=== PATIENT | male | born 1970 | race Caucasian/White ===

== ENCOUNTER 2018-10-29 06:20 | Day surgery (SDC) | payer OTHER ==
[~2018-10-29] VITALS: Ht 167.6 cm; Wt 105.5 kg
[~2018-10-29 06:20] MED LIST: SODIUM CHLORIDE 0.9% 1,000 ML IV ONE
[2018-10-29] MEDS ORDERED: LIDOCAINE 4% 50 ML SOLUTION TP ONE (06:21)
[2018-10-29] MEDS ORDERED: LIDOCAINE 2% 5 ML JELLY TP ONE (06:21)
[2018-10-29] MEDS ORDERED: BENZOCAINE 20% 50 MCG/SPRAY 57 GM TP ONE (06:21)
[2018-10-29] MEDS ORDERED: ALBUTEROL SULFATE 2.5 MG/0.5 ML NEB SOLUTION NEB ONE (06:21)
[2018-10-29] MEDS ORDERED: SODIUM CHLORIDE 0.9% 1,000 ML IV ONE (06:30)
[2018-10-29 07:28] LABS: GLUCOMETER DEV NAME(LOC) SDS.; GLUCOSE,POINT OF CARE 130 MG/DL (70-110)
[2018-10-29] MEDS ORDERED: ATOR40TA28 PO (07:52)
[2018-10-29] MEDS ORDERED: METF-445 PO (07:52)
[2018-10-29] MEDS ORDERED: HYDR25TA PO (07:52)
[2018-10-29] MEDS ORDERED: EXEN2PEN SQ (07:52)
[2018-10-29] MEDS ORDERED: LOSA25TA41 PO (07:52)
[2018-10-29] MEDS ORDERED: VITAD1000 PO (07:52)
[2018-10-29] MEDS ORDERED: CYAN250010 PO (07:52)
[2018-10-29] MEDS ORDERED: GLIP10 PO (07:52)
[2018-10-29] MEDS ORDERED: ASPI81 PO (07:52)
[2018-10-29] MEDS ORDERED: FENO160 PO (07:52)
[2018-10-29] MEDS ORDERED: FentaNYL CITRATE-PF 100 MCG/2 ML VIAL ONE (07:55)
[2018-10-29] MEDS ORDERED: MIDAZOLAM HCL 2 MG/2 ML VIAL ONE (07:55)
[2018-10-29] MEDS ORDERED: MethylPREDNISolone SOD SUCC 125 MG/2 ML VIAL IVP ONE (09:00)
[2018-10-29] MEDS ORDERED: MethylPREDNISolone SOD SUCC 125 MG/2 ML VIAL ONE (09:09)
[2018-10-29] MEDS ORDERED: OXYGEN THERAPY IH SCH (20:00)
== END 2018-10-29 10:30 | disposition home or self-care (01) ==
LOC: SURGERY 06:20
PROVIDERS: ATTEND Internal Medicine Critical Care Medicine
DX: J38.4 Edema of larynx (principal); B37.0 Candidal stomatitis; J42 Unspecified chronic bronchitis; I10 Essential (primary) hypertension; E11.9 Type 2 diabetes mellitus without complications; Z87.891 Personal history of nicotine dependence; Z79.82 Long term (current) use of aspirin; Z79.899 Other long term (current) drug therapy; Z98.890 Other specified postprocedural states
CPT/HCPCS: 31623; 31624; 71045; 82962; 87015; 87070; 87101; 87206; 87220; 88108; 88312; J2250; J2930; J3010; J7030

== ENCOUNTER 2020-09-18 06:32 | Day surgery (SDC) | payer OTHER ==
[2020-09-17 14:08] LABS: COVID AG,FIA SOURCE NASOPHARYNGEAL
[~2020-09-18] VITALS: Ht 177.8 cm; Wt 102.0 kg
[~2020-09-18 06:32] MED LIST changes: +ASPI-728 PO; +ATOR40TA28 PO; +CHOL100018 PO; +CYAN250010 PO; +EXEN2PEN SQ; +FENO160T41 PO; +GLIP10 PO; +HYDR-1475 PO; +LOSA25TA21 PO; +METF-445 PO
[2020-09-18] MEDS ORDERED: SODIUM CHLORIDE 0.9% 1,000 ML ONE (06:33)
[2020-09-18] MEDS ORDERED: MONT-35 PO (07:30)
[2020-09-18] MEDS ORDERED: EMPA25TA PO (07:30)
[2020-09-18] MEDS ORDERED: MIDAZOLAM HCL 2 MG/2 ML VIAL ONE (07:59)
[2020-09-18] MEDS ORDERED: ATROPINE SULFATE 0.1 MG/ML 10 ML SYRINGE IVP ONE (08:00)
[2020-09-18] MEDS ORDERED: FLUMAZENIL 0.1 MG/ML 5 ML VIAL IVP ONE (08:00)
[2020-09-18] MEDS ORDERED: SODIUM TETRADECYL SULFATE 3% 60 MG/2 ML VIAL IVP ONE (08:00)
[2020-09-18] MEDS ORDERED: DiphenhydrAMINE HCL 50 MG/ML VIAL ONE (08:00)
[2020-09-18] MEDS ORDERED: FentaNYL CITRATE PF 100 MCG/2 ML VIAL ONE (08:00)
[2020-09-18] MEDS ORDERED: EPINEPHrine 1:10,000 [1 MG/10 ML] SYRINGE ONE (08:00)
[2020-09-18] MEDS ORDERED: NALOXONE HCL 0.4 MG/ML VIAL ONE (08:00)
[2020-09-18] MEDS ORDERED: MethylPREDNISolone SOD SUCC 125 MG/2 ML VIAL IVP ONE (09:00)
[2020-09-18] MEDS ORDERED: MethylPREDNISolone SOD SUCC 125 MG/2 ML VIAL ONE (09:24)
[2020-09-18] MEDS ORDERED: OXYGEN THERAPY IH SCH (20:00)
== END 2020-09-18 10:35 | disposition home or self-care (01) ==
LOC: SURGERY 06:32
PROVIDERS: ATTEND Internal Medicine Critical Care Medicine
DX: J38.4 Edema of larynx (principal); B37.0 Candidal stomatitis; I10 Essential (primary) hypertension; G47.33 Obstructive sleep apnea (adult) (pediatric); Z72.89 Other problems related to lifestyle; E11.9 Type 2 diabetes mellitus without complications; Z79.4 Long term (current) use of insulin; Z79.82 Long term (current) use of aspirin; Z79.899 Other long term (current) drug therapy
CPT/HCPCS: 31623; 31624; 71045; 87015; 87070; 87101; 87205; 87206; 87220; 87426; 88108; 88184; 88185; 88312; C9803; J2250; J2930; J3010; J7030; A9575; J0171; J0461; J1200; J2310; J3490

== ENCOUNTER 2023-12-04 07:09 | Day surgery (SDC) | payer OTHER ==
[~2023-12-04] VITALS: Ht 165.1 cm; Wt 83.2 kg
[~2023-12-04 07:09] MED LIST changes: +ASPI-1450 PO; -ASPI-728 PO; +EMPA25TA3 PO; -FENO160T41 PO; +FENO160T75 PO; -GLIP10 PO; +GLIP10TA10 PO; -HYDR-1475 PO; +HYDR25TA2 PO; +LOSA-381 PO; -LOSA25TA21 PO; +MONT-35 PO; -SODIUM CHLORIDE 0.9% 1,000 ML IV ONE
[2023-12-04] MEDS ORDERED: SODIUM CHLORIDE 0.9% 1,000 ML ONE (07:11)
[2023-12-04] MEDS ORDERED: FentaNYL CITRATE PF 100 MCG/2 ML VIAL ONE (08:01)
[2023-12-04] MEDS ORDERED: MIDAZOLAM HCL 2 MG/2 ML VIAL ONE (08:01)
[2023-12-04] MEDS ORDERED: METF-1211 PO (08:07)
[2023-12-04] MEDS ORDERED: ROSU40TA70 PO (08:07)
[2023-12-04] MEDS ORDERED: CYAN-53 PO (08:07)
[2023-12-04] MEDS: SODIUM CHLORIDE 0.9% 1,000 ML IV ONE (08:25)
[2023-12-04 08:35] LABS: GLUCOMETER DEV NAME(LOC) SDS.; GLUCOSE,POINT OF CARE 135 MG/DL (70-110)
[2023-12-04 09:47] VITALS: PULSE 91; RESP 16; O2SAT 100
[2023-12-04] MEDS ORDERED: MethylPREDNISolone SOD SUCC 125 MG/2 ML VIAL ONE (10:08)
[2023-12-04] MEDS: MethylPREDNISolone SOD SUCC 125 MG/2 ML VIAL IVP ONE (10:20)
[2023-12-04] MEDS ORDERED: LIDOCAINE 2% 11 ML JELLY ONE (12:00)
[2023-12-04] MEDS ORDERED: LIDOCAINE 4% 50 ML SOLUTION ONE (12:00)
[2023-12-04] MEDS ORDERED: BENZOCAINE 20% 50 MCG/SPRAY 57 GM ONE (12:00)
== END 2023-12-04 11:10 | disposition home or self-care (01) ==
LOC: SURGERY 07:09
PROVIDERS: ATTEND Internal Medicine Critical Care Medicine
DX: J38.4 Edema of larynx (principal); B37.0 Candidal stomatitis; Z79.899 Other long term (current) drug therapy; F17.210 Nicotine dependence, cigarettes, uncomplicated; Z72.89 Other problems related to lifestyle; E11.9 Type 2 diabetes mellitus without complications; E78.00 Pure hypercholesterolemia, unspecified; Z98.890 Other specified postprocedural states
CPT/HCPCS: 31623; 82962; 87206; 87101; 87220; 87070; 88108; 31624; 71045; 87015; J3010; J2250; J2930; Q9967; J7030; Z7610